=== PATIENT | female | born 1995 | race Caucasian/White ===

== ENCOUNTER 2021-10-29 22:12 | Emergency (ER) | payer OTHER, MEDICAID ==
[~2021-10-29] VITALS: Ht 162.6 cm; Wt 59.0 kg
[2021-10-29 22:15] VITALS: BP 106/69
[2021-10-29] MEDS ORDERED: NACL 0.9% 1,000 ML IV SCH (23:30)
[2021-10-29] MEDS ORDERED: MORPHINE SULFATE 4 MG/ML SYR IVP ONE (23:30)
--- NOTE | 2021-10-29 23:31 | NUR ---
Patient taken to bed 5.
--- NOTE | 2021-10-29 23:57 | NUR ---
LAB AT [facility]
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
--- NOTE | 2021-10-30 | NUR ---
PATIENT UNABLE TO URINATE AT THIS TIME.
[2021-10-30 00:08] LABS: BASOPHILS % (AUTO) 0.3 % (0.0-2.0); EOSINOPHILS % (AUTO) 0.2 % (0.0-4.0); HEMATOCRIT 43.8 % (36-48); HEMOGLOBIN 14.4 g/dL (12.0-16.0); LYMPHOCYTES # (AUTO) 1.4 K/uL (2.5-16.5); LYMPHOCYTES % (AUTO) 12.5 % (20.5-51.1); MEAN CORPUSCULAR HEMOGLOBIN 30 pg (27-31); MEAN CORPUSCULAR HGB CONC 33 g/dL (33-37); MEAN CORPUSCULAR VOLUME 91.5 fL (80-94); MONOCYTES # (AUTO) 0.6 K/uL (0.8-1.0); MONOCYTES % (AUTO) 5.4 % (1.7-9.3); NEUTROPHILS # (AUTO) 9.2 K/uL (1.8-7.7); NEUTROPHILS % (AUTO) 81.6 % (42.2-75.2); PLATELET COUNT (AUTO) 195 K/uL (140-450); RED BLOOD CELL COUNT(AUTO) 4.79 MIL/uL (4.20-5.40); RED CELL DISTRIBUTION WIDTH 13.8 % (11.6-13.7); WHITE BLOOD COUNT (AUTO) 11.3 K/uL (4.8-10.8)
[2021-10-30 00:37] LABS: PROTHROMBIN TIME 10.7 secs (10.8-13.4)
[2021-10-30 00:57] LABS: ALBUMIN 4.9 g/dL (3.4-5.0); ANION GAP 20.7 (8-16); CARBON DIOXIDE 21.8 mmol/L (21-32); CREATININE 0.6 mg/dL (0.6-1.3); POTASSIUM 3.5 mmol/L (3.5-5.1); TOTAL BILIRUBIN 0.7 mg/dL (0.0-1.0)
--- NOTE | 2021-10-30 01:01 | NUR ---
PATIENT RETURNED FROM [facility] VIA [facility]
--- NOTE | 2021-10-30 01:44 | NUR ---
DEMARIO DOMINGUEZ MOTHER CALLED REQUESTING UPDATE [phone]
[2021-10-30] MEDS ORDERED: ACET-10509 PO (02:38)
[2021-10-30] MEDS ORDERED: LID5T TP (02:38)
[2021-10-30] MEDS ORDERED: IBUP-2213 PO (02:38)
--- NOTE | 2021-10-30 02:50 | NUR ---
CALLED BOY FRIEND ([phone]) FOR HER RIDE IN GOING BACK HOME.
[2021-10-30 03:56] VITALS: BP 112/78
--- NOTE | 2021-10-30 03:56 | NUR ---
Patient discharged with v/s stable. Written and verbal after care instructions given and explained. Patient alert, oriented and verbalized understanding of instructions. Wheel Chair Assisted with by parent. All questions addressed prior to discharge. ID band removed. Patient advised to follow up with PMD. Rx of ACETAMINOPHEN, IBUPROFEN, AND LIDOCAINE HYD given.
--- NOTE | 2021-10-30 03:56 | NUR ---
Chart checked and completed.
== END 2021-10-30 03:56 | disposition home or self-care (01) ==
LOC: MED 22:12
DX: S00.93XA Contusion of unspecified part of head, initial encounter (principal); S30.0XXA Contusion of lower back and pelvis, initial encounter; F17.200 Nicotine dependence, unspecified, uncomplicated; V49.88XA Car occupant (driver) (passenger) injured in other specified transport accidents, initial encounter; Y93.89 Activity, other specified; Y92.89 Other specified places as the place of occurrence of the external cause; Y99.8 Other external cause status
CPT/HCPCS: 36415; 70450; 70486; 71260; 74177; 80053; 83690; 84702; 85025; 85610; 85730; 96361; 96374; 99285; J2270; Q9967

== ENCOUNTER 2023-12-23 00:09 | Emergency (ER) | payer MEDICAID, OTHER ==
[~2023-12-23] VITALS: Ht 162.6 cm; Wt 56.7 kg
[~2023-12-23 00:09] MED LIST: ACET500T99 PO; IBUP-2213 PO; LID5T TP
[2023-12-23 00:22] VITALS: BP 99/62; PULSE 62; RESP 18; TEMP 98.5; O2SAT 97
[2023-12-23] MEDS: FAMOTIDINE 20 MG TAB PO ONE (00:51)
[2023-12-23] MEDS: ACETAMINOPHEN EXTRA STRENGTH 500 MG TAB PO ONE (00:51)
[2023-12-23] MEDS: ONDANSETRON 4 MG ODT PO ONE (00:51)
[2023-12-23] MEDS ORDERED: BISM262C53 PO (00:52)
[2023-12-23] MEDS ORDERED: FAMO-90 PO (00:52)
[2023-12-23] MEDS ORDERED: ONDA-188 PO (00:52)
[2023-12-23 01:10] VITALS: BP 99/62; PULSE 62; RESP 18; TEMP 98.5; O2SAT 97
== END 2023-12-23 01:10 | disposition home or self-care (01) ==
LOC: MED 00:09
DX: K52.9 Noninfective gastroenteritis and colitis, unspecified (principal); Z79.899 Other long term (current) drug therapy
CPT/HCPCS: 81025; 99284; Q0162